=== PATIENT | male | born 1970 | race American Indian/Alaskan Native ===

== ENCOUNTER 2017-07-12 09:26 | Emergency (ER) | payer OTHER ==
[2017-07-12 09:51] VITALS: BP 135/89
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
== END 2017-07-12 15:27 | disposition home or self-care (01) ==
LOC: ED 09:26
DX: M54.9 Dorsalgia, unspecified (principal); E78.00 Pure hypercholesterolemia, unspecified; V89.2XXA Person injured in unspecified motor-vehicle accident, traffic, initial encounter; Y93.89 Activity, other specified; Y92.89 Other specified places as the place of occurrence of the external cause; Y99.8 Other external cause status
CPT/HCPCS: 99281